=== PATIENT | female | born 1950 | race Caucasian/White ===

== ENCOUNTER 2022-06-08 14:49 | Emergency (ER) | payer OTHER, MEDICAID ==
[~2022-06-08] VITALS: Ht 157.5 cm; Wt 57.6 kg
[2022-06-08 15:19] VITALS: BP_SYST 151
--- NOTE | 2022-06-08 21:00 | NUR ---
Patient ambulatory to chair 1 for evaluation and treatment
--- NOTE | 2022-06-08 21:16 | NUR ---
SEA Ortiz examining patient.
--- NOTE | 2022-06-08 21:40 | NUR ---
Patient eloped from the facility. ER aware
== END 2022-06-08 21:40 | disposition left against medical advice (07) ==
LOC: SED 14:49
DX: S16.1XXA Strain of muscle, fascia and tendon at neck level, initial encounter (principal); S20.212A Contusion of left front wall of thorax, initial encounter; S50.11XA Contusion of right forearm, initial encounter; S80.02XA Contusion of left knee, initial encounter; Z79.899 Other long term (current) drug therapy; W22.10XA Striking against or struck by unspecified automobile airbag, initial encounter; Y93.89 Activity, other specified; Y92.89 Other specified places as the place of occurrence of the external cause; Y99.8 Other external cause status
CPT/HCPCS: 70450-TC; 71045; 72125-TC; 73090; 76376; 99284